=== PATIENT | male | born 1995 | race Caucasian/White ===

== ENCOUNTER 2016-11-20 11:05 | Emergency (ER) | payer BC ==
[2016-11-20] MEDS ORDERED: Fluorescein Sodium TOPICAL* 1 MG TEST ONE (11:14)
[2016-11-20 12:04] VITALS: BP 152/80
--- NOTE | 2016-11-20 14:29 | ED ---
Throat Pain/Nasal Congestion - HPI Summary HPI Summary: Patient presents with CC of left eye pain after working with metal and stating something had been lodged in the medial canthus of the eye. He was able to dislodge it, but continues to c/o pain. Denies KIM. Endorses blurry vision and drainage from the area. He was able to irrigated the eye at home prior to ED. Denies other symptoms or complaints at this time. - History of Current Complaint Chief Complaint: EDEyeProblem Time Seen by Provider: 11/20/16 11:10 Hx Obtained From: Patient Onset/Duration: Sudden Onset Severity: Severe Associated Signs And Symptoms: Positive: Negative - Epiglottits Risk Factors Epiglottis Risk Factors: Negative - Allergies/Home Medications Allergies/Adverse Reactions: Allergies Allergy/AdvReac Type Severity Reaction Status Date / Time Cefprozil [From Cefzil] Allergy Mild Rash Verified 05/24/15 07:32 PMH/Surg Hx/FS Hx/Imm Hx Previously Healthy: Yes Endocrine/Hematology History: Denies: Hx Diabetes, Hx Thyroid Disease Cardiovascular History: Denies: Hx Hypertension, Hx Pacemaker/ICD, Other Cardiovascular Problems/ Disorders Respiratory History: Denies: Hx Asthma, Hx Chronic Obstructive Pulmonary Disease (COPD), Other Respiratory Problems/Disorders GI History: Denies: Hx Ulcer, Other GI Disorders History: Denies: Other Problems/Disorders Musculoskeletal History: Denies: Other Musculoskeletal History Sensory History: Denies: Hx Contacts or Glasses, Hx Hearing Aid Opthamlomology History: Denies: Hx Contacts or Glasses Neurological History: Denies: Other Neuro Impairments/Disorders Psychiatric History: Denies: Hx Panic Disorder - Surgical History Surgery Procedure, Year, and Place: 2013 RIGHT HIP - LABRAL REPAIR, [place], LEFT KNEE SURGERY Hx Anesthesia Reactions: No - Immunization History Hx Pertussis Vaccination: No Immunizations Up to Date: Unable to Obtain/Confirm Infectious Disease History: No Infectious Disease History: Denies: Hx Hepatitis, Hx Human Immunodeficiency Virus (HIV), Traveled Outside the [place] in Last 30 Days - Family History Known Family History: Positive: None - Social History Occupation: Employed Full-time Lives: With Family Alcohol Use: None Hx Substance Use: No Substance Use Type: Reports: None Hx Tobacco Use: No Smoking Status (MU): Never Smoked Tobacco Have You Smoked in the Last Year: No Review of Systems Constitutional: Negative Positive: Photophobia, Blurred Vision, Drainage, Erythema ENT: Negative Cardiovascular: Negative Respiratory: Negative Positive: no symptoms reported, see HPI Musculoskeletal: Negative Neurological: Negative Psychological: Normal All Other Systems Reviewed And Are Negative: Yes Physical Exam Triage Information Reviewed: Yes Vital Signs On Initial Exam: Initial Vitals Temp Pulse Resp BP Pulse Ox 98.5 F 100 17 143/93 98 11/20/16 11:08 11/20/16 11:08 11/20/16 11:08 11/20/16 11:08 11/20/16 11:08 Vital Signs Reviewed: Yes Appearance: Positive: Well-Appearing, Well-Nourished Skin: Positive: Warm, Skin Color Reflects Adequate Perfusion Head/Face: Positive: Normal Head/Face Inspection Eyes: Positive: EOMI, PAYAL, Conjunctiva Inflammed, Discharge - clear Neck: Positive: Supple, Nontender, No Lymphadenopathy Respiratory/Lung Sounds: Positive: Clear to Auscultation, Breath Sounds Present Cardiovascular: Positive: Normal, RRR, Pulses are Symmetrical in both Upper and Lower Extremities Musculoskeletal: Positive: Normal, Strength/ROM Intact Neurological: Positive: Sensory/Motor Intact, Alert, Oriented to Person Place, Time Psychiatric: Positive: Normal AVPU Assessment: Alert Diagnostics - Vital Signs Vital Signs Temp Pulse Resp BP Pulse Ox 11/20/16 12:03 83 16 152/80 11/20/16 11:19 98.5 F 88 18 143/93 100 11/20/16 11:08 98.5 F 100 17 143/93 98 - Laboratory Lab Statement: Any lab studies that have been ordered have been reviewed, and results considered in the medical decision making process. EENT Course/Dx - Course Course Of Treatment: Tetracaine with fluoroscein stain applied to the eye. Zhu lamp used to look for FB. No uptake visualized in the canthus or otherwise. Patient noted to dislodging the metal piece prior to arrival to ED. Denies other symptoms at this time. Erythromycin ointment for antibiotic and pain management given. - Differential Diagnoses Differential Diagnoses: Abrasion, Conjunctivitis, Foreign Body - Diagnoses Provider Diagnoses: Foreign body, eye Discharge - Discharge Plan Condition: Stable Disposition: HOME Prescriptions: Erythromycin TOPICAL GEL* [Erythromycin OPTH OINT*] 1 applic TOPICAL TID #1 oint oxyCODONE/Acetamin 10/325(NF) [Percocet 10/325 (NF)] 1 tab PO Q6H PRN #4 tab MDD 4 PRN Reason: Pain Patient Education Materials: Eye Foreign Body (ED) Referrals: Shellie Draper MD [Primary Care Provider] - Additional Instructions: Follow up with PCP If you develop worsening sxs, return to ED immediately
== END 2016-11-20 12:03 | disposition home or self-care (01) ==
LOC: ED 11:05
DX: T15.92XA Foreign body on external eye, part unspecified, left eye, initial encounter (principal); H57.12 Ocular pain, left eye; H53.149 Visual discomfort, unspecified; H53.8 Other visual disturbances; X58.XXXA Exposure to other specified factors, initial encounter; Y93.9 Activity, unspecified; Y92.89 Other specified places as the place of occurrence of the external cause
CPT/HCPCS: 99282; A9270-GY

== ENCOUNTER 2016-11-21 11:29 | Emergency (ER) | payer BC ==
--- NOTE | 2016-11-21 11:41 | UC ---
Eye Complaint HPI - HPI Summary HPI Summary: 21 YEAR OLD MALE PRESENTS WITH COMPLAINS OF SEVERE PAIN IN HIS LEFT EYE SECONDARY TO A METAL THAT HE REMOVED YESTERDAY. [place] [facility] [place]. I WILL SEND HIM BACK TO THE ER FOR A CT OF THE EYE. - History of Current Complaint Chief Complaint: UCEye Stated Complaint: EYE PAIN Time Seen by Provider: 11/21/16 11:35 - Allergies/Home Medications Allergies/Adverse Reactions: Allergies Allergy/AdvReac Type Severity Reaction Status Date / Time Cefprozil [From Cefzil] Allergy Mild Rash Verified 05/24/15 07:32 PMH/Surg Hx/FS Hx/Imm Hx - Surgical History Surgical History: Yes Surgery Procedure, Year, and Place: 2012 RIGHT HIP - LABRAL REPAIR, [place], LEFT KNEE SURGERY hand surgery - Family History Known Family History: Positive: None - Social History Alcohol Use: None Substance Use Type: None Smoking Status (MU): Never Smoked Tobacco Have You Smoked in the Last Year: No Review of Systems Constitutional: Negative Skin: Negative Eyes: Blurred Vision, Eye Redness, Photophobia ENT: Negative Respiratory: Negative Cardiovascular: Negative Gastrointestinal: Negative Genitourinary: Negative Motor: Negative Neurovascular: Negative Musculoskeletal: Negative Neurological: Negative Psychological: Negative All Other Systems Reviewed And Are Negative: Yes Physical Exam Triage Information Reviewed: Yes Vital Signs: Initial Vital Signs Temp 36.6 C 11/21/16 11:31 Pulse 71 11/21/16 11:31 Resp 17 11/21/16 11:31 Pulse Ox 100 11/21/16 11:31 Eyes: Positive: Conjunctiva Inflamed ENT Exam: Normal Dental Exam: Normal Neck exam: Normal Neck: Positive: 1 Respiratory Exam: Normal Cardiovascular Exam: Normal Abdominal Exam: Normal Musculoskeletal Exam: Normal Neurological Exam: Normal Psychological Exam: Normal Skin Exam: Normal Eye Complaint Course/Dx - Differential Dx/Diagnosis Provider Diagnoses: FOREIGN BODY IN EYE. LEFT EYE PAIN Discharge - Discharge Plan Condition: Stable Disposition: AGAINST MEDICAL ADVICE Referrals: Paul Torrez MD [Primary Care Provider] -
[2016-11-21 11:42] VITALS: BP 141/83
== END 2016-11-21 11:45 | disposition left against medical advice (07) ==
LOC: UCEAST 11:29
DX: T15.92XA Foreign body on external eye, part unspecified, left eye, initial encounter (principal); H57.12 Ocular pain, left eye
CPT/HCPCS: 99212; G0463

== ENCOUNTER 2016-11-21 12:00 | Emergency (ER) | payer BC ==
[2016-11-21 12:10] VITALS: BP 129/62
--- NOTE | 2016-11-21 12:34 | UC ---
Eye Complaint HPI - HPI Summary HPI Summary: to ED yesterday for evaluation of FB (metal from grinding) in Left eye-On exam yesterday no fb noted, no ablation or ulceration--was taking Percocet to manage pain---vision in left eye remains blurry and he has posterior eye pain - History of Current Complaint Chief Complaint: EDEyeProblem Stated Complaint: EYE INJURY Time Seen by Provider: 11/21/16 12:17 Hx Obtained From: Patient Onset/Duration: Sudden Onset, Lasting Days - 1, Still Present Timing: Constant Severity Initially: Severe Severity Currently: Severe Pain Intensity: 8 Pain Scale Used: 0-10 Numeric Location of Injury: Conjunctiva Character: Foreign Body Sensation Aggravating Factor(s): Light Alleviating Factor(s): Darkness Associated Signs And Symptoms: Positive: Drainage (Clear) Related History: Foreign Body - left eye, Trauma - left eye - Risk Factors Penetrating Injury Risk Factor: Grinding - Allergies/Home Medications Allergies/Adverse Reactions: Allergies Allergy/AdvReac Type Severity Reaction Status Date / Time Cefprozil [From Cefzil] Allergy Mild Rash Verified 05/24/15 07:32 PMH/Surg Hx/FS Hx/Imm Hx Previously Healthy: Yes - Surgical History Surgical History: Yes Surgery Procedure, Year, and Place: 2013 RIGHT HIP - LABRAL REPAIR, [place], LEFT KNEE SURGERY hand surgery - Family History Known Family History: Positive: None - Social History Occupation: Employed Full-time Lives: With Family Alcohol Use: None Substance Use Type: None Smoking Status (MU): Never Smoked Tobacco Have You Smoked in the Last Year: No - Immunization History Hx Tetanus, Diphtheria Vaccination: Yes - last date unknown Vaccination Up to Date: No Review of Systems Constitutional: Negative Skin: Negative Eyes: Negative, Eye Redness ENT: Negative Respiratory: Negative Cardiovascular: Negative Gastrointestinal: Negative Genitourinary: Negative Motor: Negative Neurovascular: Negative Musculoskeletal: Negative Neurological: Negative Psychological: Negative All Other Systems Reviewed And Are Negative: Yes Physical Exam Triage Information Reviewed: Yes Appearance: Well-Appearing, Well-Nourished, Pain Distress Vital Signs: Initial Vital Signs Temp 98.5 F 11/21/16 12:09 Pulse 63 11/21/16 12:09 Resp 18 11/21/16 12:09 BP 129/62 11/21/16 12:09 Pulse Ox 98 11/21/16 12:09 Vital Signs Reviewed: Yes Eye Exam: Normal Eyes: Positive: Conjunctiva Inflamed, Discharge - clear, Other: - PERRLA, EOMI, Peripheral vision decreased in left side, ENT Exam: Normal ENT: Positive: Normal ENT inspection, Hearing grossly normal, TMs normal. Negative: Nasal congestion, Nasal drainage, Trismus, Muffled/hoarse voice Dental Exam: Normal Neck exam: Normal Neck: Positive: Supple, Nontender, No Lymphadenopathy Respiratory Exam: Normal Respiratory: Positive: Chest non-tender, No respiratory distress, No accessory muscle use Cardiovascular Exam: Normal Cardiovascular: Positive: RRR, Pulses Normal, Brisk Capillary Refill Musculoskeletal Exam: Normal Musculoskeletal: Positive: Strength Intact, ROM Intact, No Edema Neurological Exam: Normal Neurological: Positive: Alert, Muscle Tone Normal Psychological Exam: Normal Skin Exam: Normal Eye Complaint Course/Dx - Differential Dx/Diagnosis Provider Diagnoses: Report given and care transfered to Dr. Aranda [id number] Discharge - Discharge Plan Condition: Good Disposition: HOME Prescriptions: oxyCODONE/Acetamin 5/325 MG* [Percocet 5/325 TAB*] 1 tab PO Q6H PRN #20 tab MDD 4 PRN Reason: pain Patient Education Materials: Oxycodone/Acetaminophen (By mouth), Corneal Abrasion (ED) Referrals: Paul Torrez MD [Primary Care Provider] - Romario Flood MD [Medical Doctor] - 1 Day
[2016-11-21] MEDS ORDERED: Ibuprofen TAB* 600 MG PO ONE (12:36)
[2016-11-21] MEDS ORDERED: Tetan/Diph/Pertus SYR(Tdap)* 0.5 ML SYR(BOOSTRIX) use SYR IM ONE (12:37)
--- NOTE | 2016-11-21 12:58 | RAD ---
INDICATION: Foreign body left eye. COMPARISON: Comparison is made with a prior CT of the facial bones from March 12, 2014. TECHNIQUE: Contiguous axial sections of the orbits were obtained without intravenous contrast enhancement. Images were reconstructed in the coronal and sagittal planes. FINDINGS: The orbital globes appear intact. The extraocular muscles and optic nerves are symmetric. No radiopaque foreign body is seen. No fracture is noted. The paranasal sinuses appear clear. The visualized portion of the mastoid air cells appear clear. There is moderate to severe deviation of the nasal septum toward the right side. [id number]: NO EVIDENCE FOR RADIOPAQUE FOREIGN BODY.
--- NOTE | 2016-11-21 15:50 | ED ---
I, Oh,Soohyun, scribed for Nehemias Aranda MD on 11/21/16 at 1453 . Progress - Progress Note Progress Note: Signed out at shift change. This 21 y/o male presents to ED for FB sensation and pain of left eye. 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 Pt was here for similar complaint yesterday and sent home with erythromycin and pain medications. Pt returns today with photophobia and increased pain today. Pt was seen by Mei Rojas and was signed out to Dr. Aranda. CT reveals no FB. Pt was rechecked with fluorescein dye at 1445 PM. Physical Exam - Summary Physical Exam Summary: The patient is well-nourished in no acute distress and in no acute pain. The skin is warm and dry and skin color reflects adequate perfusion. HEENT: The head is normocephalic and atraumatic. EYE: The pupils are equal and reactive. left eye: Anterior chamber clear. Increased injection of medial aspect of left eye. I everted his eye lid, but found no visible FB. Fluorescein dye was administered, and there are increased uptake in 7 o'clock. Another scratch noted at 5 o'clock. Psychiatric: The patient has an appropriate affect and does not exhibit any anxiety or depression. 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 Pt was evaluated for similar complaints and sent home with erythromycin and pain med yesterday. Pt returned today with increased pain and persistent FB, as well as photophobia. Upon examination, no visible FB was noted on anterior chamber or inside the eye lid. Increased sclera injection at medial aspect of left orb. Fluorescein dye was administered and noted with increased uptake at 7 o'clock and another scratch at 5 o'clock. - Diagnoses Provider Diagnoses: Left corneal abrasion The documentation as recorded by the Antonio camarena Soohyun accurately reflects the service I personally performed and the decisions made by me, Nehemias Aranda MD.
== END 2016-11-21 15:12 | disposition home or self-care (01) ==
LOC: ED 12:00
DX: S05.02XA Injury of conjunctiva and corneal abrasion without foreign body, left eye, initial encounter (principal); W22.8XXA Striking against or struck by other objects, initial encounter; Y93.9 Activity, unspecified; Y92.9 Unspecified place or not applicable
CPT/HCPCS: 70480; 90471; 90715; 99282; A9270-GY

== ENCOUNTER 2019-03-24 14:41 | Emergency (ER) | payer BC ==
[2019-03-24 14:54] VITALS: BP 130/80
--- NOTE | 2019-03-24 14:55 | UC ---
Skin Complaint HPI - HPI Summary HPI Summary: 23 yo male presents with ?herpes outbreak. He tells me that he has had this happen multiple times in the past. The last 2 days he has felt a burning and stinging sensation to his chin. This morning noticed small red blisters draining clear/yellow fluid. He states he has used antivirals in the past with good relief and is asking for this today. Denies fever, chills, sore throat, hx of infectious diseases, n/v. - History of Current Complaint Chief Complaint: UCSkin Time Seen by Provider: 03/24/19 14:55 Stated Complaint: SKIN COMPLAINT Hx Obtained From: Patient Onset/Duration: Gradual Onset Onset Severity: Mild Current Severity: Mild Pain Intensity: 2 Pain Scale Used: 0-10 Numeric - Allergy/Home Medications Allergies/Adverse Reactions: Allergies Allergy/AdvReac Type Severity Reaction Status Date / Time cefprozil [From Cefzil] Allergy Rash Verified 03/24/19 14:55 PMH/Surg Hx/FS Hx/Imm Hx - Additional Past Medical History Additional PMH: None - Surgical History Surgical History: Yes Surgery Procedure, Year, and Place: 2013 RIGHT HIP - LABRAL REPAIR, [place], LEFT KNEE SURGERY hand surgery, 2nd right hip surgery - Family History Known Family History: Positive: None - Social History Lives: With Family Alcohol Use: Occasionally Substance Use Type: None Smoking Status (MU): Never Smoked Tobacco Have You Smoked in the Last Year: No - Immunization History Hx Tetanus, Diphtheria Vaccination: Yes - last date unknown Vaccination Up to Date: No Review of Systems All Other Systems Reviewed And Are Negative: No Constitutional: Positive: Negative Skin: Positive: Rash Eyes: Positive: Negative ENT: Positive: Negative Respiratory: Positive: Negative Cardiovascular: Positive: Negative Gastrointestinal: Positive: Negative Neurological: Positive: Negative Psychological: Positive: Negative Physical Exam - Summary Physical Exam Summary: GENERAL: NAD. WDWN. No pain distress. SKIN: CHIN: Mildly erythematous clear/yellowish blister clusters. NECK: Supple. Nontender. No lymphadenopathy. CHEST: No accessory muscle use. Breathing comfortably and in no distress. CV: Pulses intact. Cap refill <2seconds NEURO: Alert. PSYCH: Age appropriate behavior. Triage Information Reviewed: Yes Vital Signs: Initial Vital Signs Temp 98.6 F 03/24/19 14:51 Pulse 83 03/24/19 14:51 Resp 16 03/24/19 14:51 BP 130/80 03/24/19 14:51 Pulse Ox 98 03/24/19 14:51 Vital Signs Reviewed: Yes Course/Dx - Course Course Of Treatment: Suspect oral herpes. Will treat with antivirals and there is some scant yellow crusting, thus will rx for bactroban as well - Diagnoses Provider Diagnosis: Oral herpes simplex infection Discharge ED - Sign-Out/Discharge Documenting (check all that apply): Patient Departure All imaging exams completed and their final reports reviewed: No Studies - Discharge Plan Condition: Stable Disposition: HOME Prescriptions: Mupirocin 2% OINT* [Bactroban 2 % Oint*] 1 applic TOPICAL BID #1 tube ValACYclovir (*) [Valtrex 1 GM(*)] 2 gm PO BID 3 Days #12 tab Patient Education Materials: Oral Herpes Simplex Virus Infections (ED) Referrals: Romario Greene MD [Primary Care Provider] - Additional Instructions: If you develop a fever, shortness of breath, chest pain, new or worsening symptoms - please call your PCP or go to the ED immediately. - Billing Disposition and Condition Condition: STABLE Disposition: Home
== END 2019-03-24 15:13 | disposition home or self-care (01) ==
LOC: UCEAST 14:41
DX: B00.89 Other herpesviral infection (principal); Z88.1 Allergy status to other antibiotic agents
CPT/HCPCS: 99212; G0463